=== PATIENT | male | born 1970 | race Hispanic/Latino ===

== ENCOUNTER 2017-08-14 04:55 | Inpatient (IN) | payer OTHER ==
[~2017-08-14] VITALS: Ht 180.3 cm; Wt 114.5 kg
[2017-08-14] VITALS (8 sets, daily range): BP systolic 114–135; BP diastolic 58–87
[2017-08-14] MEDS ORDERED: ONDANSETRON HCL INJ 2 MG/ML VIAL IV PRN (05:30)
[2017-08-14] MEDS ORDERED: ACETAMINOPHEN 325 MG TAB PO PRN (05:30)
[2017-08-14] MEDS: SODIUM CHLORIDE 0.9% 1000ML 1,000 ML IV SCH ×2 (05:44→15:30)
[2017-08-14] MEDS ORDERED: LISINOPRIL10 MG PO (06:09)
[2017-08-14] MEDS ORDERED: HYDROCHLOROTH12.5 M1 (06:09)
[2017-08-14] MEDS: MORPHINE SULFATE 2 MG/ML SYR IV PRN ×4 (07:22→20:37)
[2017-08-14 08:24] LABS: EOSINOPHILS # (AUTO) 0.1 (0.0-0.4); EOSINOPHILS % 1.4 % (0.0-6.0); HEMATOCRIT 36.4 % (38.2-49.6); HEMOGLOBIN 12.1 g/dL (14.0-18.0); LYMPHOCYTES # (AUTO) 2.4 (1.0-3.2); LYMPHOCYTES % 27.3 % (18.0-39.1); MEAN CORPUSCULAR HEMOGLOBIN 28.5 pg (28-32); MEAN CORPUSCULAR HGB CONC 33.2 g/dL (31-35); MEAN CORPUSCULAR VOLUME 85.8 fL (81-99); MONOCYTES # (AUTO) 0.7 (0.2-0.8); MONOCYTES % 8.5 % (4.4-11.3); NEUTROPHILS # (AUTO) 5.5 (2.1-6.9); NEUTROPHILS % 62.6 % (38.7-80.0); PLATELET COUNT 217 x10e3/uL (140-360); RED BLOOD COUNT 4.24 x10e6/uL (4.3-5.7); RED CELL DISTRIBUTION WIDTH 13.3 % (11.7-14.4)
[2017-08-14 08:50] LABS: ALANINE AMINOTRANSFERASE 45 IU/L (0-55); ALBUMIN 3.3 g/dL (3.5-5.0); ALKALINE PHOSPHATASE 51 IU/L (40-150); AMYLASE 249 U/L (25-125); ANION GAP 9.7 mmol/L (8-16); BLOOD UREA NITROGEN 19 mg/dL (7-26); BUN/CREATININE RATIO 23 (6-25); CALCIUM 8.2 mg/dL (8.4-10.2); CARBON DIOXIDE 23 mmol/L (22-29); CHLORIDE 106 mmol/L (98-107); CREATININE, SERUM 0.83 mg/dL (0.72-1.25); EST GLOMERULAR FILTRATION RATE > 60 ML/MIN (60-); GLUCOSE 105 mg/dL (74-118); LIPASE 1152 U/L (8-78); POTASSIUM 3.7 mmol/L (3.5-5.1); SODIUM 135 mmol/L (136-145)
[2017-08-14] MEDS: FAMOTIDINE 20 MG TAB PO SCH (18:30)
[2017-08-14] MEDS: LISINOPRIL 10 MG TAB PO SCH (18:46)
--- NOTE | 2017-08-15 00:40 | History and Physical ---
PRIMARY CARE PROVIDER: Dr. Pako Almendarez. CHIEF COMPLAINT: Abdominal pain. HISTORY OF PRESENT ILLNESS: Mr. House is a 46-year-old gentleman presenting with epigastric abdominal pain with some nausea and vomiting that has been going on and off for the past several days. Patient apparently had 6 beers around [place] time. Started developing the abdominal pain after that. It went away for a while. He had a few more drinks. It came back. He was a little worried it might be due to the Crestor which he stopped. REVIEW OF SYSTEMS: He denies fever, chills, or weight loss. He denies sinus congestion or sore throat. He denies chest pain or palpitations. He denies shortness of breath, wheezing, or cough. He has abdominal pain with nausea and vomiting as noted. He denies diarrhea. He denies hematemesis or melena. He denies dysuria or flank pain. He denies rash or pruritus. He denies joint pain or swelling. He denies bleeding or bruising. He denies headache, vertigo, or loss of consciousness. He denies depression, agitation, homicidal or suicidal ideation. PAST MEDICAL HISTORY: Significant for hypertension for which he takes lisinopril/hydrochlorothiazide 10 and 12.5 daily. He also has a history of cholecystectomy done a few years ago. DRUG ALLERGIES: NONE KNOWN. FAMILY HISTORY: Remarkable for hypertension. SOCIAL HISTORY: The patient is , here with his . He is but Spanish is his primary language. He does not smoke or use illegal drugs. He drinks rarely socially and is independently functioning. PHYSICAL EXAM PSYCHIATRIC: He is alert and oriented times 3 with normal mood and affect. CONSTITUTIONAL: He has a normal body habitus. He is in no acute distress. VITAL SIGNS: Blood pressure 135/87, pulse 70 and regular, respiratory rate 20, O2 sat 99% on room air, and temperature 96.6. HEENT: His head is atraumatic. His eyes are anicteric with clear conjunctivae. Ears and nares are without erythema or discharge. Oropharynx is clear. NECK: Supple with no mass or thyromegaly. LYMPHATIC SYSTEM: He has no palpable cervical, axillary, or inguinal adenopathy. CARDIOVASCULAR: His heart has a regular rate and rhythm without murmur or extra sounds. He has no carotid bruit. He has no peripheral edema. He has palpable dorsal pedal pulses. RESPIRATORY: Lungs are clear to auscultation and percussion with normal respiratory effort. GASTROINTESTINAL: His abdomen is soft. He is mild to moderate tender in the epigastric and left upper quadrant without rebound or guarding. He has no hepatosplenomegaly. Normal bowel sounds are present. CUTANEOUS: His skin is warm and dry to touch. No rash or skin breakdown. MUSCULOSKELETAL: His joints are in normal alignment without erythema or swelling. He has no calf tenderness. NEUROLOGIC: Nonfocal with intact cranial nerves and no motor or sensory deficits. DIAGNOSTIC STUDIES: His chemistry shows normal electrolytes. CO2 of 23, creatinine 0.83, BUN 19 for a normal GFR. Glucose is 105. His AST is 54 which is just slightly elevated. The rest of his transaminases, bilirubin, and alkaline phosphatase are normal. His amylase is 249. Lipase is 1152. CBC shows a white count of 8.75 with a normal differential. Hemoglobin 12.1, hematocrit 36.4, and platelet count 217,000. IMPRESSION AND PLAN 1. Acute pancreatitis. The patient received intravenous fluids and was kept n.p.o. overnight. Feels a little bit better today. Will start clear liquids. Will monitor his amylase and lipase level. The patient has had a history of cholecystectomy but will get an ultrasound of the abdomen to rule out intrahepatic stones or intrabiliary duct stones. 2. For hypertension, we will keep the patient on his lisinopril. We will hold the hydrochlorothiazide for now. 3. For prophylaxis, the patient will be on Pepcid for gastrointestinal prophylaxis and sequential compression dressings for deep venous thrombosis prophylaxis. Job#: [id number]
[2017-08-15] MEDS: MORPHINE SULFATE 2 MG/ML SYR IV PRN ×5 (00:55→23:05)
[2017-08-15] MEDS: SODIUM CHLORIDE 0.9% 1000ML 1,000 ML IV SCH ×3 (01:00→22:30)
[2017-08-15 01:47] VITALS: BP 124/74
[2017-08-15 04:00] VITALS: BP 127/67
[2017-08-15 06:47] LABS: BASOPHILS % 0.1 % (0.0-1.0); EOSINOPHILS # (AUTO) 0.1 (0.0-0.4); EOSINOPHILS % 1.2 % (0.0-6.0); HEMATOCRIT 37.9 % (38.2-49.6); HEMOGLOBIN 12.5 g/dL (14.0-18.0); LYMPHOCYTES # (AUTO) 1.8 (1.0-3.2); LYMPHOCYTES % 27.1 % (18.0-39.1); MEAN CORPUSCULAR HEMOGLOBIN 28.7 pg (28-32); MEAN CORPUSCULAR VOLUME 86.9 fL (81-99); MONOCYTES # (AUTO) 0.7 (0.2-0.8); MONOCYTES % 10.4 % (4.4-11.3); NEUTROPHILS # (AUTO) 4.2 (2.1-6.9); NEUTROPHILS % 61.1 % (38.7-80.0); PLATELET COUNT 215 x10e3/uL (140-360); RED BLOOD COUNT 4.36 x10e6/uL (4.3-5.7)
[2017-08-15 07:11] LABS: AMYLASE 231 U/L (25-125); ANION GAP 9.7 mmol/L (8-16); BLOOD UREA NITROGEN 10 mg/dL (7-26); BUN/CREATININE RATIO 13 (6-25); CALCIUM 8.6 mg/dL (8.4-10.2); CARBON DIOXIDE 25 mmol/L (22-29); CHLORIDE 103 mmol/L (98-107); CHOL/HDL RATIO 8.8 (3.9-4.7); CHOLESTEROL 168 MD/DL (0-199); CREATININE, SERUM 0.77 mg/dL (0.72-1.25); EST GLOMERULAR FILTRATION RATE > 60 ML/MIN (60-); GLUCOSE 94 mg/dL (74-118); HDL CHOLESTEROL 19 MG/DL (40-60); LDL CHOLESTEROL 125 MG/DL (60-130); LIPASE 983 U/L (8-78); POTASSIUM 3.7 mmol/L (3.5-5.1); SODIUM 134 mmol/L (136-145); TRIGLYCERIDES 118 MG/DL (0-149)
[2017-08-15 07:37] LABS: THYROID STIMULATING HORMONE 1.147 uIU/mL (0.350-4.940)
[2017-08-15] MEDS: FAMOTIDINE 20 MG TAB PO SCH ×2 (07:47→19:40)
[2017-08-15] MEDS: LISINOPRIL 10 MG TAB PO SCH (07:47)
[2017-08-15 08:00] VITALS: BP 125/84
[2017-08-15] MEDS ORDERED: LISINOPRIL 10 MG TAB PO SCH (09:00)
[2017-08-15] MEDS ORDERED: KETOROLAC TROMETHAMINE 30 MG/ML VIAL IM PRN (10:30)
[2017-08-15 12:00] VITALS: BP 126/79
[2017-08-15 16:00] VITALS: BP 135/83
[2017-08-16] MEDS: MORPHINE SULFATE 2 MG/ML SYR IV PRN ×4 (04:00→21:04)
[2017-08-16 06:26] LABS: BASOPHILS % 0.1 % (0.0-1.0); EOSINOPHILS # (AUTO) 0.1 (0.0-0.4); EOSINOPHILS % 1.3 % (0.0-6.0); HEMATOCRIT 35.8 % (38.2-49.6); LYMPHOCYTES # (AUTO) 2.1 (1.0-3.2); MEAN CORPUSCULAR HEMOGLOBIN 28.8 pg (28-32); MEAN CORPUSCULAR HGB CONC 33.5 g/dL (31-35); MEAN CORPUSCULAR VOLUME 85.9 fL (81-99); MONOCYTES # (AUTO) 0.6 (0.2-0.8); MONOCYTES % 8.5 % (4.4-11.3); NEUTROPHILS # (AUTO) 4.3 (2.1-6.9); NEUTROPHILS % 60.7 % (38.7-80.0); PLATELET COUNT 228 x10e3/uL (140-360); RED BLOOD COUNT 4.17 x10e6/uL (4.3-5.7); RED CELL DISTRIBUTION WIDTH 12.9 % (11.7-14.4)
[2017-08-16 07:33] LABS: AMYLASE 171 U/L (25-125); ANION GAP 12.8 mmol/L (8-16); BLOOD UREA NITROGEN 8 mg/dL (7-26); BUN/CREATININE RATIO 11 (6-25); CALCIUM 8.7 mg/dL (8.4-10.2); CARBON DIOXIDE 22 mmol/L (22-29); CHLORIDE 107 mmol/L (98-107); CREATININE, SERUM 0.75 mg/dL (0.72-1.25); EST GLOMERULAR FILTRATION RATE > 60 ML/MIN (60-); GLUCOSE 98 mg/dL (74-118); LIPASE 869 U/L (8-78); POTASSIUM 3.8 mmol/L (3.5-5.1); SODIUM 138 mmol/L (136-145)
[2017-08-16 08:00] VITALS: BP 155/84
[2017-08-16] MEDS: FAMOTIDINE 20 MG TAB PO SCH (08:30)
[2017-08-16] MEDS: LISINOPRIL 10 MG TAB PO SCH (08:59)
--- NOTE | 2017-08-16 10:30 | Diagnostic Imaging Report ---
EXAM: US ABDOMEN COMPLETE DATE: 08/15/2017 7:00 AM INDICATION: , Pancreatitis COMPARISON: None TECHNIQUE: Transverse and longitudinal simmons scale and color doppler sonographic images of the upper abdomen were obtained. FINDINGS: LIVER 19.1 cm in the right midclavicular line. Increased echogenicity, normal contour, no masses. SPLEEN 11.3 cm in maximum diameter. GALLBLADDER Removed BILE DUCTS No intra nor extra-hepatic biliary dilation. Common bile duct measures 0.4 cm PANCREAS: Not visualized due to overlying bowel gas. RIGHT KIDNEY: 13.1 cm Echogenicity: Normal Collecting System: No hydronephrosis Stones: None Cyst/Mass: Superior pole cyst 3.3 x 2.8 x 2.6 cm LEFT KIDNEY: 12.7 cm Echogenicity: Normal Collecting System: No hydronephrosis Stones: None Cyst/Mass: None VESSELS: Aorta: Not seen due to overlying bowel gas Inferior Vena Cava: Grossly unremarkable Main Portal Vein: 1.0 cm FREE FLUID: None IMPRESSION: 1. Pancreas not visualized due to overlying bowel gas. 2. Hepatomegaly with hepatic steatosis. Signed by: Dr Paulina Dukes MD on 08/14/2017 8:36 PM
[2017-08-16 12:00] VITALS: BP 125/77
[2017-08-16 14:00] VITALS: BP 125/77
[2017-08-16 16:00] VITALS: BP 133/80
[2017-08-16] MEDS: FAMOTIDINE 20 MG/2 ML VIAL IV SCH (16:47)
[2017-08-16] MEDS: HYDROCODONE/APAP 5MG-325MG TAB PO PRN ×2 (17:00→23:22)
[2017-08-16 20:13] VITALS: BP 121/70
[2017-08-17 06:37] LABS: BASOPHILS % 0.2 % (0.0-1.0); EOSINOPHILS # (AUTO) 0.2 (0.0-0.4); EOSINOPHILS % 2.5 % (0.0-6.0); HEMATOCRIT 37.3 % (38.2-49.6); HEMOGLOBIN 12.5 g/dL (14.0-18.0); LYMPHOCYTES # (AUTO) 1.9 (1.0-3.2); LYMPHOCYTES % 31.6 % (18.0-39.1); MEAN CORPUSCULAR HEMOGLOBIN 28.9 pg (28-32); MEAN CORPUSCULAR HGB CONC 33.5 g/dL (31-35); MEAN CORPUSCULAR VOLUME 86.1 fL (81-99); MONOCYTES # (AUTO) 0.6 (0.2-0.8); MONOCYTES % 10.4 % (4.4-11.3); NEUTROPHILS # (AUTO) 3.3 (2.1-6.9); PLATELET COUNT 242 x10e3/uL (140-360); RED BLOOD COUNT 4.33 x10e6/uL (4.3-5.7); RED CELL DISTRIBUTION WIDTH 12.7 % (11.7-14.4)
[2017-08-17 07:09] LABS: AMYLASE 147 U/L (25-125); ANION GAP 11.7 mmol/L (8-16); BLOOD UREA NITROGEN 9 mg/dL (7-26); BUN/CREATININE RATIO 11 (6-25); CARBON DIOXIDE 24 mmol/L (22-29); CHLORIDE 104 mmol/L (98-107); CREATININE, SERUM 0.79 mg/dL (0.72-1.25); EST GLOMERULAR FILTRATION RATE > 60 ML/MIN (60-); GLUCOSE 82 mg/dL (74-118); LIPASE 850 U/L (8-78); MAGNESIUM 2.3 MG/DL (1.3-2.1); POTASSIUM 3.7 mmol/L (3.5-5.1); SODIUM 136 mmol/L (136-145)
[2017-08-17 08:00] VITALS: BP 143/84
[2017-08-17] MEDS: MORPHINE SULFATE 2 MG/ML SYR IV PRN ×3 (09:00→20:46)
[2017-08-17] MEDS: LISINOPRIL 10 MG TAB PO SCH (09:00)
[2017-08-17] MEDS: FAMOTIDINE 20 MG/2 ML VIAL IV SCH ×2 (09:00→17:00)
[2017-08-17 09:44] VITALS: BP 143/84
[2017-08-17] MEDS ORDERED: ACETAMINOPHEN/CODEINE 300MG - 30MG TAB PO ONE (11:00)
[2017-08-17 12:00] VITALS: BP 130/81
[2017-08-17] MEDS ORDERED: ACETAMINOPHEN/CODEINE 300MG - 30MG TAB PO SCH (14:15)
[2017-08-17 16:00] VITALS: BP 132/79
[2017-08-17] MEDS: HYDROCODONE/APAP 5MG-325MG TAB PO PRN ×2 (18:30→23:15)
[2017-08-17 20:02] VITALS: BP 119/75
[2017-08-17 22:36] VITALS: BP 119/75
[2017-08-18 00:26] VITALS: BP 118/74
[2017-08-18 05:38] VITALS: BP 125/78
[2017-08-18 07:06] LABS: BASOPHILS % 0.1 % (0.0-1.0); EOSINOPHILS # (AUTO) 0.2 (0.0-0.4); EOSINOPHILS % 2.3 % (0.0-6.0); HEMATOCRIT 38.1 % (38.2-49.6); LYMPHOCYTES # (AUTO) 1.9 (1.0-3.2); LYMPHOCYTES % 27.8 % (18.0-39.1); MEAN CORPUSCULAR HGB CONC 34.1 g/dL (31-35); MONOCYTES # (AUTO) 0.6 (0.2-0.8); MONOCYTES % 8.8 % (4.4-11.3); NEUTROPHILS # (AUTO) 4.2 (2.1-6.9); NEUTROPHILS % 60.7 % (38.7-80.0); PLATELET COUNT 247 x10e3/uL (140-360); RED BLOOD COUNT 4.48 x10e6/uL (4.3-5.7); RED CELL DISTRIBUTION WIDTH 12.8 % (11.7-14.4)
[2017-08-18 07:30] LABS: AMYLASE 145 U/L (25-125); ANION GAP 12.7 mmol/L (8-16); BLOOD UREA NITROGEN 11 mg/dL (7-26); BUN/CREATININE RATIO 14 (6-25); CALCIUM 9.2 mg/dL (8.4-10.2); CARBON DIOXIDE 24 mmol/L (22-29); CHLORIDE 104 mmol/L (98-107); EST GLOMERULAR FILTRATION RATE > 60 ML/MIN (60-); GLUCOSE 92 mg/dL (74-118); LIPASE 980 U/L (8-78); MAGNESIUM 2.1 MG/DL (1.3-2.1); POTASSIUM 3.7 mmol/L (3.5-5.1); SODIUM 137 mmol/L (136-145)
[2017-08-18 08:24] VITALS: BP 129/84
[2017-08-18] MEDS: FAMOTIDINE 20 MG/2 ML VIAL IV SCH ×2 (09:00→16:29)
[2017-08-18] MEDS: LISINOPRIL 10 MG TAB PO SCH (09:00)
[2017-08-18 11:15] VITALS: BP 129/89
[2017-08-18 11:24] VITALS: BP 129/89
[2017-08-18] MEDS: HYDROCODONE/APAP 5MG-325MG TAB PO PRN (12:16)
[2017-08-18] MEDS ORDERED: GADOBUTROL 10 MMOL/10 ML VIAL IV ONE (12:19)
--- NOTE | 2017-08-18 15:21 | Diagnostic Imaging Report ---
MRI abdomen without and with contrast, and Magnetic resonance cholangiopancreatography (MRCP). Clinical History: Abdominal pain and elevated lipase. Pancreas not visualized with ultrasound examination. Comparison: None. Correlation with ultrasound abdomen complete dated 08/14/2017. Technique: Multiplanar and multisequence imaging was performed of the abdomen. T1 and T2-weighted images were obtained with and without contrast. T1-weighted in and [id number] , Dynamic, post gadolinium T1-weighted spoiled gradient echo scans. 10 cc of gadolinium were administered intravenously. Multiplanar, multisequence MRCP was performed, with sequences including coronal turbo spin-echo T1-weighted scans, [facility] MRCP scans, coronal spin, coronal MPR 2, [facility], [facility] MRCP A[place]. Findings: LOWER THORAX: Unremarkable. HEPATOBILIARY: Mild heterogeneous decrease in signal of the hepatic parenchyma on the T1-weighted out of phase scans consistent with steatosis. No focal hepatic lesions. No biliary ductal dilation. GALLBLADDER: Not visualized. SPLEEN: No splenomegaly. PANCREAS: Heterogeneous enhancement of the pancreatic parenchyma, with hypointense pancreatic head, uncinate process and proximal body. There is prominence of the pancreatic tail measuring up to 4.1 cm in maximal AP dimension. There is mild stranding of the peripancreatic fat. No focal masses or ductal dilatation. ADRENALS: No adrenal nodules KIDNEYS/URETERS: Kidneys enhance symmetrically. No hydronephrosis. 3.0 cm nonenhancing T2 hyperintense lesion in the upper pole of the right kidney consistent with a simple cyst. GI TRACT: No abnormal distention, wall thickening, or evidence of bowel obstruction. Appendix is normal. LYMPH NODES: No lymphadenopathy. VESSELS: Unremarkable. PERITONEUM / RETROPERITONEUM: No free air or fluid. BONES: Unremarkable. SOFT TISSUES: Small fat-containing umbilical hernia. IMPRESSION: 1. Mild prominence of the distal hepatic body and tail with heterogeneous enhancement of the pancreatic parenchyma associated with mild surrounding fat stranding compatible with mild interstitial pancreatitis in the proper clinical setting. No pancreatic or peripancreatic fluid collections. 2. Status post cholecystectomy. No significant biliary dilatation. Signed by: Dr. Caity Pruett M.D. on 08/18/2017 3:17 PM
[2017-08-18 16:11] VITALS: BP 128/77
[2017-08-18] MEDS ORDERED: FAMOTIDINE20 MG PO (16:13)
[2017-08-18] MEDS ORDERED: TYLENOL WITH C1 EACH PO (16:13)
[2017-08-18] MEDS ORDERED: ZOFRAN ODT4 MG BU (16:13)
--- NOTE | 2017-08-18 22:01 | Discharge Summary ---
ADMITTING DIAGNOSES 1. Abdominal pain. 2. Pancreatitis. 3. Hypertension. DISCHARGE DIAGNOSES 1. Abdominal pain. 2. Pancreatitis. 3. Hypertension. HISTORY: The patient has a history of hypertension and cholecystectomy. HOSPITAL COURSE: A 46-year-old male presented with epigastric abdominal pain, nausea and vomiting on and off for the last several days. He says he does not drink much, had actually completely quit drinking for years and then a couple of years ago, he started intermittently drinking. He recently also started Crestor because he had problem on other statins, abdominal pain and thought that it might be Crestor, so he stopped taking it. On admission, for the pancreatitis, the patient received IV fluids and kept NPO. He felt a little bit better, so clear liquids were started. His amylase was 249 on admission, lipase 1152. We did an ultrasound of the abdomen to rule out stones. The ultrasound showed hepatomegaly with hepatic steatosis. Through a couple of days, the patient continued to have abdominal pain which gradually improved, but the amylase and lipase improved very little over a couple of days. I discussed the plan with Dr. Georges who said to order an MRCP and if it was negative, the patient could discharge. So, the MRCP was done, which showed no biliary ductal dilation, no focal masses or dilation, post cholecystectomy. So, patient was discharged home on Tylenol No. 3, Pepcid and Zofran and continued home medicines. He is to follow up with primary care in 1 to 2 weeks and follow up with GI for the hepatic steatosis. Apparently, it runs in his family, so he is aware that he has it. Patient is tolerating diet with minimal pain. Dictated by: Sumi Garsia NP. SEEMA GEORGES MD Job#: [id number] [facility]
== END 2017-08-18 18:05 | disposition home or self-care (01) | DRG 439 ==
LOC: MED/SURG2 05:17
PROVIDERS: ADMIT Internal Medicine; ATTEND Internal Medicine
DX: K85.90 Acute pancreatitis without necrosis or infection, unspecified (principal); E87.1 Hypo-osmolality and hyponatremia; K76.0 Fatty (change of) liver, not elsewhere classified; R16.0 Hepatomegaly, not elsewhere classified; I10 Essential (primary) hypertension; D64.9 Anemia, unspecified; R73.9 Hyperglycemia, unspecified; Z90.49 Acquired absence of other specified parts of digestive tract
CPT/HCPCS: 36415; 74183; 76700; 80048; 80053; 80061; 82150; 82948; 83036; 83690; 83735; 84439; 84443; 85025; A9585; J1885; J2270; J7030